=== PATIENT | male | born 1970 ===

== ENCOUNTER 2017-01-05 05:57 | Emergency (ER) | payer MEDICARE, OTHER ==
[~2017-01-05] VITALS: Ht 175.3 cm; Wt 180.0 kg
[2017-01-05 05:58] VITALS: Ht 175.3 cm; Wt 180.0 kg
--- NOTE | 2017-01-05 06:40 | ERD ---
ER Documentation Chief Complaint Chief Complaint Cardiac Arrest HPI This is a 43-year-old male with a history of pancreatic cancer that has metastasized to the liver, currently undergoing chemotherapy, hypertension, diabetes and chronic kidney disease who is presenting with cardiac arrest. The patient was reportedly at a nursing facility and was complaining of some shortness of breath. He felt the need to go to the bathroom and was placed on the commode. It is unclear how long he was on the commode for, but he was eventually found unresponsive on the floor. He was found to be pulseless and CPR was initiated immediately. An ambulance was called and they arrived approximately 2 minutes later. A right tibial IO was placed. The patient was intubated approximately 15-20 minutes prior to arrival to the emergency department. A total of 6 rounds of epinephrine was given to the patient. Bicarbonate was also given to the patient prior to arrival. He also recieved 250mL NS. The patient was reportedly in PEA arrest throughout transport for the paramedics. CPR was maintained throughout transport. The cardiac arrest began 35 minutes prior to arrival to the emergency department. ROS Review of systems was limited secondary to cardiac arrest. PMhx/Soc Hx Cardiac Disorders: Yes (HTN, DM) Hx Miscellaneous Medical Probl: Yes (Metastatic pancreatic ca with mets to liver, Stage 3 CKD) FmHx Unable to obtain secondary to patient in cardiac arrest Physical Exam Vitals Vital Signs Date Time Temp Pulse Resp B/P Pulse Ox O2 Delivery O2 Flow Rate FiO2 01/05/17 05:58 97.9 0 0 0/0 0 Pulseless, SpO2 92% via BVM intubated Physical Exam Const: Patient in cardiac arrest, unresponsive, well-developed, well- nourished Head: Atraumatic Eyes: Scleral Icterus. Pupils fixed and dilated. ENT: Patient Intubated. Normal External Ears, Nose. Dry Mucous Membranes. Neck: Trachea Midline Resp: Bilateral Coarse Breath Sounds present, No breath sounds over epigastrum. Cardio: Pulseless, No heat beat Abd: Distended. Ext: 2+ Pitting BLE edema, no femoral pulse during pulse check, LUE PICC, Right tibial IO Neur: Unresponsive, no spontaneous movements, no movements to painful stimulation Procedures/MDM MDM Patient presents in cardiac arrest. He had been worked for approximately 35 minutes prior to arrival to the emergency department. He received 6 rounds of epinephrine in addition to 1 amp of bicarb prior to arrival. He was reportedly in PEA prior to arrival but he was asystole on our monitors. The ET tube positioning was checked via auscultation with coarse breath sounds bilaterally that were present and no breath sounds over the epigastrium. The patient had received epinephrine approximately 3 minutes prior to arrival. 1 minute after arrival a pulse check occurred. The patient was pulseless in asystole. Compressions were resumed. ACLS protocol was maintained and good CPR was maintained throughout the code. The patient never had a shockable rhythm. The patient's pupils were checked upon arrival and were found to be fixed and dilated. The code was continued for 10 extra minutes. He was given a second round of epinephrine. The patient was given bicarbonate and calcium in the emergency department as well. Unfortunately, we are not able to obtain return of spontaneous circulation. The patient was coded for a total of 45 minutes, with an unknown downtime prior to initiation of CPR. At the 45 minute shaq, pulses were checked again and he was found to be pulseless. There is cardiac standstill on the ultrasound. The patient's pupils were fixed and dilated. He had no gag reflex. He had no breath sounds. He had no heartbeat. The team involved in the resuscitation was queried to discuss the outcome of the patient. Everyone agreed that this was a nonsurvivable event. The patient's time of was 6:07 AM on January 05, 2017. IMAGING Bedside US Performed by Pamela hernández Demonstrated Cardiac Standstill with clotted blood in the LV. Images not obtained 2/2 acuity of condition Critical Care Time: 20 minutes Treatments/Evaluations: Close monitoring and treatment of unstable vital signs, cardiorespiratory, and neurologic status, while maintaining tight balance of fluid, respiratory, and cardiac interventions. This time includes discussing the case with the patient and the patient's family. This time does not include all procedures stated elsewhere in this record. This time also includes reviewing old records, labs and radiological studies. This time includes examining and re-examining the patient. Additionally, this time also includes arranging care with admitting and consulting physicians. Departure Diagnosis: Primary Impression: Cardiac arrest Condition: PAMELA Grimm MD Jan 05, 2017 06:30
[2017-01-05] MEDS ORDERED: NA BICARBONATE 8.4% 50 ML SYG ONE (07:00)
[2017-01-05] MEDS ORDERED: CA CHLORIDE 10% 10 ML SYRINGE ONE (07:00)
[2017-01-05] MEDS ORDERED: EPINEPHrine 0.1 MG/ML SYG ONE (07:00)
== END 2017-01-05 12:47 | disposition expired ==
LOC: E/R 05:57
DX: I46.9 Cardiac arrest, cause unspecified (principal); I12.9 Hypertensive chronic kidney disease with stage 1 through stage 4 chronic kidney disease, or unspecified chronic kidney disease; N18.3 Chronic kidney disease, stage 3 (moderate); E11.22 Type 2 diabetes mellitus with diabetic chronic kidney disease; Z85.07 Personal history of malignant neoplasm of pancreas; Z85.05 Personal history of malignant neoplasm of liver
CPT/HCPCS: 31500; 76937; 92950; 99285; J0171